=== PATIENT | female | born 1940 | race Two or more races ===

== ENCOUNTER 2019-03-22 12:03 | Emergency (ER) | payer OTHER ==
[~2019-03-22] VITALS: Ht 167.6 cm; Wt 75.3 kg
[~2019-03-22 12:03] MED LIST: AMOX1TAB12 PO; BACTROBAN OINT22 GM TP; CALTRATE 600600 MG; DULERA 100 MCG/13 GM; NABUMETONE750 MG PO; ORPH100T PO; PROAIR HFA8.5 GM; QVAR7.3 G1; SINGULAIR4 MG; SYNTHROID100 MCG; VITAMIN A10000 UNI1; ZEBUTAL CAPSULE1 CAP PO
== END 2019-03-22 14:58 | disposition home or self-care (01) ==
LOC: ER 12:03
DX: N20.1 Calculus of ureter (principal)

== ENCOUNTER 2023-03-14 18:38 | Emergency (ER) | payer OTHER ==
[~2023-03-14] VITALS: Ht 162.6 cm; Wt 74.8 kg
[2023-03-14] MEDS ORDERED: LEVOTHYROXINE88 MC1 PO (19:04)
[2023-03-14] MEDS ORDERED: SERTRALINE20 MG/1 ML PO (19:07)
[2023-03-14] MEDS ORDERED: LEVSIN/SL0.125 MG SL (21:34)
[2023-03-14] MEDS ORDERED: CARAFATE1 GM PO (21:34)
[2023-03-14] MEDS ORDERED: PEPCID AC20 MG PO (21:34)
== END 2023-03-14 21:41 | disposition home or self-care (01) ==
LOC: ER 18:38
DX: K29.70 Gastritis, unspecified, without bleeding (principal); E03.9 Hypothyroidism, unspecified

== ENCOUNTER 2024-10-10 23:56 | Emergency (ER) | payer OTHER ==
[~2024-10-10] VITALS: Ht 170.2 cm; Wt 86.2 kg
[~2024-10-10 23:56] MED LIST changes: +CARAFATE1 GM PO; +LEVOTHYROXINE88 MC1 PO; +LEVSIN/SL0.125 MG SL; +PEPCID AC20 MG PO; +SERTRALINE20 MG/1 ML PO
[2024-10-11] MEDS ORDERED: FAMOTIDINE/PF 20 MG in 0.9 % SODIUM CHLORIDE 8 ML IV PUSH STA (00:45)
[2024-10-11] MEDS ORDERED: DIPHENOXYLATE HCL/ATROPINE 1 UDTAB TABLET PO ONE (00:45)
[2024-10-11] MEDS ORDERED: ONDANSETRON HCL 2 MG/ML VIAL IV ONE (00:45)
[2024-10-11] MEDS ORDERED: 0.9 % SODIUM CHLORIDE 1,000 ML IV SCH (00:45)
[2024-10-11 02:18] LABS: HEMATOCRIT 38.6 % (36.0-45.00); HEMOGLOBIN 13.3 g/dL (12.0-15.00); MEAN CELL VOLUME 90.6 fL (80.00-100.00); MEAN CORPUSCULAR HEMOGLOBIN 31.3 pg (27.00-32.0); MEAN CORPUSCULAR HGB CONC 34.6 g/dl (32.0-36.0); PLATELET COUNT 168 K/uL (150-450); RED BLOOD COUNT 4.26 M/uL (4.00-6.00); RED CELL DISTRIBUTION WIDTH 14.1 % (11.5-14.5)
[2024-10-11 02:49] LABS: ALBUMIN 3.8 gm/dL (3.4-5.0); BILIRUBIN TOTAL 0.46 mg/dL (0.3-1.2); CALCIUM 8.8 mg/dL (8.5-10.1); CREATININE SERUM 0.71 mg/dL (0.55-1.02); GFR 78.81; GLOBULINA 3.7 G/DL (2.4-3.5); POTASSIUM 3.45 mEq/L (3.5-5.1); TOTAL PROTEIN 7.5 gm/dL (6.4-8.2)
[2024-10-11] MEDS ORDERED: OMEPRAZOLE40 MG PO (03:43)
[2024-10-11] MEDS ORDERED: METRONIDAZOLE500 MG PO (03:43)
[2024-10-11] MEDS ORDERED: CIPRO500 MG PO (03:43)
== END 2024-10-11 04:39 | disposition home or self-care (01) ==
LOC: ER 23:56
PROVIDERS: General Practice
DX: K52.9 Noninfective gastroenteritis and colitis, unspecified (principal); R10.32 Left lower quadrant pain; E03.8 Other specified hypothyroidism
CPT/HCPCS: 36415; 74176; 96365; 96366; 99284; J2405; J3490; J7030